=== PATIENT | female | born 2000 | race Caucasian/White ===

== ENCOUNTER 2018-01-03 11:39 | Outpatient (CLI) | payer OTHER | END 2018-01-03 14:30 | disposition home or self-care (01) | LOC: OBT 11:39 → L-D 11:40 → OBT 14:30 | DX: O26.892 Other specified pregnancy related conditions, second trimester (principal); M79.662 Pain in left lower leg; M79.661 Pain in right lower leg; Z3A.21 21 weeks gestation of pregnancy | CPT/HCPCS: 93970 ==

== ENCOUNTER 2018-01-15 16:21 | Inpatient (IN) | payer OTHER ==
[2018-01-15] MEDS: SOD CHLORIDE 0.9% 1,000 ML IV (17:49)
[2018-01-15] MEDS ORDERED: NACL 0.9% 3 ML SYG IV (18:00)
[2018-01-15] MEDS ORDERED: MAGNESIUM HYDROXIDE 30ML CUP PO (18:00)
[2018-01-15] MEDS: ACETAMINOPHEN 325 MG TAB PO (21:53)
[2018-01-15] MEDS: SOD CHLORIDE 0.9% 500 ML IV (23:37)
[2018-01-16] MEDS: SOD CHLORIDE 0.9% 1,000 ML IV ×3 (01:14→13:09)
[2018-01-16 03:58] LABS: LACTIC ACID 0.7 mmol/L (0.5-2.0)
[2018-01-16] MEDS: CEFTRIAXONE 1 GM/50 ML (PMX) 50 ML IVPB (08:40)
[2018-01-16] MEDS: DOCUSATE SODIUM 100 MG CAP PO (09:14)
[2018-01-16] MEDS: ACETAMINOPHEN 325 MG TAB PO ×2 (09:14→22:55)
[2018-01-16 09:16] LABS: ADD MAN DIFF? NO
[2018-01-16 09:24] LABS: BASOPHILS % 0.2 % (0.0-2.0); EOSINOPHILS # 0.1 10^3/ul (0.0-0.5); EOSINOPHILS % 0.9 % (0.0-7.0); HEMATOCRIT 30.4 % (37.0-47.0); HEMOGLOBIN 10.5 g/dl (12.0-16.0); LYMPHOCYTES # 1.4 10^3/ul (0.8-2.9); MEAN CORPUSCULAR HEMOGLOBIN 29.9 pg (29.0-33.0); MEAN CORPUSCULAR HGB CONC 34.5 g/dl (32.0-37.0); MEAN CORPUSCULAR VOLUME 86.6 fl (72.0-104.0); MEAN PLATELET VOLUME 12.5 fl (7.4-10.4); MONOCYTE # 0.9 10^3/ul (0.3-0.9); MONOCYTES % 8.7 % (0.0-13.0); NEUTROPHIL # 8.2 10^3/ul (1.6-7.5); NEUTROPHILS % 76.8 % (30.0-74.0); PLATELET COUNT 170 10^3/UL (140-415); RED BLOOD COUNT 3.51 10^6/ul (4.20-5.40); RED CELL DISTRIBUTION WIDTH 13.2 % (11.5-14.5)
[2018-01-16 09:24] LABS: WHITE BLOOD COUNT 10.6 10^3/ul (4.8-10.8)
[2018-01-16 09:43] LABS: ALANINE AMINOTRANSFERASE 26 IU/L (13-69); ALBUMIN 3.5 g/dl (3.3-4.9); ALBUMIN/GLOBULIN RATIO 1.09; ALKALINE PHOSPHATASE 168 IU/L (42-121); ANION GAP 13 (8-16); ASPARTATE AMINO TRANSFERASE 27 IU/L (15-46); BILIRUBIN,INDIRECT 0.4 mg/dl (0-1.1); BILIRUBIN,TOTAL 0.4 mg/dl (0.2-1.3); BLOOD UREA NITROGEN 2 mg/dl (7-20); CALCIUM 8.8 mg/dl (8.4-10.2); CARBON DIOXIDE 23 mmol/L (21-31); CHLORIDE 109 mmol/L (97-110); GLUCOSE 71 mg/dl (70-220); POTASSIUM 3.8 mmol/L (3.5-5.1); SODIUM 141 mmol/L (135-144); TOTAL PROTEIN 6.7 g/dl (6.1-8.1)
[2018-01-16] MEDS ORDERED: ONDANSETRON 4 MG INJ IV (19:30)
[2018-01-16 19:45] LABS: ADD UMIC NO; UR ASCORBIC ACID NEGATIVE (NEGATIVE); UR BILIRUBIN (Dip) NEGATIVE (NEGATIVE); UR BLOOD (Dip) NEGATIVE (NEGATIVE); UR CLARITY CLEAR (CLEAR); UR COLOR YELLOW (YELLOW); UR GLUCOSE (Dip) 2+ mg/dL (NEGATIVE); UR KETONES (Dip) NEGATIVE (NEGATIVE); UR LEUKOCYTE ESTERASE (Dip) NEGATIVE Leu/ul (NEGATIVE); UR NITRITE (Dip) NEGATIVE (NEGATIVE); UR SPECIFIC GRAVITY (Dip) 1.005 (1.003-1.030); UR TOTAL PROTEIN (Dip) NEGATIVE (NEGATIVE); UR UROBILINOGEN (Dip) 1+ mg/dL (NEGATIVE)
[2018-01-17] MEDS: SOD CHLORIDE 0.9% 1,000 ML IV ×2 (05:53→12:31)
[2018-01-17 07:20] LABS: ADD MAN DIFF? NO
[2018-01-17 07:21] LABS: WHITE BLOOD COUNT 8.2 10^3/ul (4.8-10.8)
[2018-01-17 07:21] LABS: BASOPHILS % 0.2 % (0.0-2.0); EOSINOPHILS # 0.1 10^3/ul (0.0-0.5); EOSINOPHILS % 1.1 % (0.0-7.0); HEMATOCRIT 28.4 % (37.0-47.0); LYMPHOCYTES # 1.6 10^3/ul (0.8-2.9); LYMPHOCYTES % 19.3 % (18.0-55.0); MEAN CORPUSCULAR HEMOGLOBIN 30.6 pg (29.0-33.0); MEAN CORPUSCULAR HGB CONC 35.2 g/dl (32.0-37.0); MEAN CORPUSCULAR VOLUME 86.9 fl (72.0-104.0); MEAN PLATELET VOLUME 12.2 fl (7.4-10.4); MONOCYTE # 0.8 10^3/ul (0.3-0.9); MONOCYTES % 9.2 % (0.0-13.0); NEUTROPHIL # 5.7 10^3/ul (1.6-7.5); NEUTROPHILS % 69.8 % (30.0-74.0); PLATELET COUNT 188 10^3/UL (140-415); RED BLOOD COUNT 3.27 10^6/ul (4.20-5.40); RED CELL DISTRIBUTION WIDTH 12.8 % (11.5-14.5)
[2018-01-17] MEDS: CEFTRIAXONE 1 GM/50 ML (PMX) 50 ML IVPB (08:19)
== END 2018-01-17 22:00 | disposition home or self-care (01) | DRG 781 ==
LOC: TEL 01-16 00:28 → MS1 16:21
PROVIDERS: Internal Medicine Nephrology
DX: O23.02 Infections of kidney in pregnancy, second trimester (principal); E87.1 Hypo-osmolality and hyponatremia; N10 Acute pyelonephritis; Z3A.24 24 weeks gestation of pregnancy; O99.012 Anemia complicating pregnancy, second trimester; R00.0 Tachycardia, unspecified
CPT/HCPCS: 76805; 76817; 80053; 81003; 83605; 85025; 87040; 87086; 93005

== ENCOUNTER 2018-04-28 10:41 | Outpatient (CLI) | payer OTHER ==
[2018-04-28 11:31] LABS: ADD UMIC YES; UR ASCORBIC ACID NEGATIVE (NEGATIVE); UR BILIRUBIN (Dip) NEGATIVE (NEGATIVE); UR BLOOD (Dip) NEGATIVE (NEGATIVE); UR CLARITY SLIGHTLY CLOUDY (CLEAR); UR COLOR YELLOW (YELLOW); UR GLUCOSE (Dip) NEGATIVE (NEGATIVE); UR KETONES (Dip) NEGATIVE (NEGATIVE); UR LEUKOCYTE ESTERASE (Dip) TRACE Leu/ul (NEGATIVE); UR MUCUS FEW /HPF (NONE SEEN); UR NITRITE (Dip) NEGATIVE (NEGATIVE); UR RBC 0 /HPF (0-5); UR SPECIFIC GRAVITY (Dip) 1.015 (1.003-1.030); UR SQUAMOUS EPITHELIAL CELL MODERATE /HPF (FEW); UR TOTAL PROTEIN (Dip) NEGATIVE (NEGATIVE); UR UROBILINOGEN (Dip) NEGATIVE (NEGATIVE); UR WBC 2 /HPF (0-5)
[2018-04-28] MEDS: LACTATED RINGER'S 1,000 ML IV ×2 (11:51→12:58)
[2018-04-28] MEDS: ONDANSETRON 4 MG INJ IV (11:51)
[2018-04-28 12:13] LABS: WHITE BLOOD COUNT 8.5 10^3/ul (4.8-10.8)
[2018-04-28 12:13] LABS: ADD MAN DIFF? NO; BASOPHILS % 0.4 % (0.0-2.0); EOSINOPHILS % 0.4 % (0.0-7.0); HEMOGLOBIN 12.7 g/dl (12.0-16.0); LYMPHOCYTES # 1.1 10^3/ul (0.8-2.9); LYMPHOCYTES % 12.6 % (18.0-55.0); MEAN CORPUSCULAR HEMOGLOBIN 29.7 pg (29.0-33.0); MEAN CORPUSCULAR HGB CONC 34.3 g/dl (32.0-37.0); MEAN CORPUSCULAR VOLUME 86.7 fl (72.0-104.0); MONOCYTE # 0.3 10^3/ul (0.3-0.9); NEUTROPHILS % 82.2 % (30.0-74.0); PLATELET COUNT 180 10^3/UL (140-415); RED BLOOD COUNT 4.27 10^6/ul (4.20-5.40); RED CELL DISTRIBUTION WIDTH 13.2 % (11.5-14.5)
[2018-04-28 12:39] LABS: ALANINE AMINOTRANSFERASE 33 IU/L (13-69); ALBUMIN 3.7 g/dl (3.3-4.9); ALBUMIN/GLOBULIN RATIO 1.05; ALKALINE PHOSPHATASE 270 IU/L (42-121); ANION GAP 15 (8-16); ASPARTATE AMINO TRANSFERASE 32 IU/L (15-46); BILIRUBIN,INDIRECT 0.5 mg/dl (0-1.1); BILIRUBIN,TOTAL 0.5 mg/dl (0.2-1.3); BLOOD UREA NITROGEN 6 mg/dl (7-20); CALCIUM 9.4 mg/dl (8.4-10.2); CARBON DIOXIDE 20 mmol/L (21-31); CHLORIDE 108 mmol/L (97-110); CREATININE 0.42 mg/dl (0.44-1.00); GLUCOSE 94 mg/dl (70-220); POTASSIUM 4.4 mmol/L (3.5-5.1); SODIUM 139 mmol/L (135-144); TOTAL PROTEIN 7.2 g/dl (6.1-8.1)
[2018-04-28] MEDS: ACETAMINOPHEN 1000MG/100ML IV 100 ML IVPB (14:04)
[2018-04-28] MEDS: BUTORPHANOL 2 MG INJ IV (15:34)
== END 2018-04-28 19:12 | disposition home or self-care (01) ==
LOC: OBT 10:41 → L-D 10:41 → OBT 19:12
DX: O21.2 Late vomiting of pregnancy (principal); O26.893 Other specified pregnancy related conditions, third trimester; R10.9 Unspecified abdominal pain; Z3A.38 38 weeks gestation of pregnancy
CPT/HCPCS: 36415; 80053; 81001; 85025; 87086; 96360; 96374; 96375

== ENCOUNTER 2018-05-12 21:15 | Inpatient (IN) | payer OTHER ==
[2018-05-12] MEDS ORDERED: LIDOCAINE 1% (MPF) 30 ML INJ INJ (22:00)
[2018-05-12] MEDS ORDERED: OXYTOCIN 30 UNITS/LR 500 ML IV (22:00)
[2018-05-12] MEDS ORDERED: IBUPROFEN 600 MG TAB PO (22:00)
[2018-05-12] MEDS ORDERED: MISOPROSTOL 200 MCG TAB PR (22:00)
[2018-05-12] MEDS ORDERED: METHYLERGONOVINE 0.2 MG INJ IM (22:00)
[2018-05-12] MEDS ORDERED: BUTORPHANOL 2 MG INJ IV (22:00)
[2018-05-12] MEDS ORDERED: CARBOPROST 250 MCG INJ IM (22:00)
[2018-05-12 22:29] LABS: ADD MAN DIFF? NO
[2018-05-12 22:31] LABS: ABNORMAL IP MESSAGE 1; BASOPHILS % 0.2 % (0.0-2.0); EOSINOPHILS % 0.4 % (0.0-7.0); HEMATOCRIT 36.3 % (37.0-47.0); HEMOGLOBIN 12.8 g/dl (12.0-16.0); LYMPHOCYTES # 1.3 10^3/ul (0.8-2.9); LYMPHOCYTES % 13.8 % (18.0-55.0); MEAN CORPUSCULAR HEMOGLOBIN 30.3 pg (29.0-33.0); MEAN CORPUSCULAR HGB CONC 35.3 g/dl (32.0-37.0); MEAN PLATELET VOLUME 13.2 fl (7.4-10.4); MONOCYTE # 0.5 10^3/ul (0.3-0.9); MONOCYTES % 5.2 % (0.0-13.0); NEUTROPHIL # 7.7 10^3/ul (1.6-7.5); NEUTROPHILS % 80.1 % (30.0-74.0); PLATELET COUNT 174 10^3/UL (140-415); RED BLOOD COUNT 4.22 10^6/ul (4.20-5.40); RED CELL DISTRIBUTION WIDTH 13.1 % (11.5-14.5)
[2018-05-12 22:31] LABS: WHITE BLOOD COUNT 9.6 10^3/ul (4.8-10.8)
[2018-05-12 22:32] LABS: POSITIVE DIFF @See below
[2018-05-12 22:50] LABS: INR 0.86; PROTIME 11.8 Sec (11.9-14.9); PT RATIO 0.9
[2018-05-12 22:51] LABS: PARTIAL THROMBOPLASTIN TIME 28.4 Sec (25.0-35.0)
[2018-05-12] MEDS: LACTATED RINGER'S 1,000 ML IV* (23:08)
[2018-05-12 23:20] LABS: HEPATITIS B SURFACE ANTIGEN NEGATIVE (NEGATIVE)
[2018-05-13 00:55] LABS: ADD UMIC YES; UR ASCORBIC ACID NEGATIVE (NEGATIVE); UR BILIRUBIN (Dip) NEGATIVE (NEGATIVE); UR BLOOD (Dip) NEGATIVE (NEGATIVE); UR CLARITY CLEAR (CLEAR); UR COLOR YELLOW (YELLOW); UR GLUCOSE (Dip) NEGATIVE (NEGATIVE); UR KETONES (Dip) NEGATIVE (NEGATIVE); UR LEUKOCYTE ESTERASE (Dip) NEGATIVE Leu/ul (NEGATIVE); UR MUCUS FEW /HPF (NONE SEEN); UR NITRITE (Dip) NEGATIVE (NEGATIVE); UR RBC 0 /HPF (0-5); UR SQUAMOUS EPITHELIAL CELL FEW /HPF (FEW); UR TOTAL PROTEIN (Dip) 1+ mg/dl (NEGATIVE); UR UROBILINOGEN (Dip) NEGATIVE (NEGATIVE); UR WBC 1 /HPF (0-5)
[2018-05-13] MEDS: LACTATED RINGER'S 1,000 ML IV (02:34)
[2018-05-13] MEDS ORDERED: FENTAnyl 2MCG/ML-ROPIV 0.2% 100 ML (03:12)
[2018-05-13] MEDS ORDERED: NALOXONE (0.4 MG/ML) INJ IV (03:30)
[2018-05-13] MEDS: LACTATED RINGER'S 1,000 ML IV* ×2 (03:30→11:04)
[2018-05-13] MEDS: FENTAnyl 2MCG/ML-ROPIV 0.2% 100 ML BAG EPI ×3 (03:46→20:15)
[2018-05-13] MEDS: OXYTOCIN 30 UNITS/LR 500 ML IV ×3 (16:24→21:18)
[2018-05-13 16:48] LABS: RAPID PLASMA REAGIN NONREACTIVE (NR)
[2018-05-13] MEDS ORDERED: LACTATED RINGER'S 1,000 ML IV* (23:03)
[2018-05-13] MEDS ORDERED: HYDROCODONE/APAP (5/325) TAB PO ×2 (23:30)
[2018-05-13] MEDS ORDERED: METHYLERGONOVINE 0.2 MG INJ IM (23:30)
[2018-05-13] MEDS ORDERED: OXYTOCIN 30 UNITS/LR 500 ML IV (23:30)
[2018-05-13] MEDS ORDERED: DIBUCAINE 1% 30 GM OINT PR (23:30)
[2018-05-13] MEDS ORDERED: ZOLPIDEM 5 MG TAB PO (23:30)
[2018-05-13] MEDS ORDERED: MISOPROSTOL 200 MCG TAB PR (23:30)
[2018-05-13] MEDS ORDERED: CARBOPROST 250 MCG INJ IM (23:30)
[2018-05-13] MEDS: CEPHALEXIN 500 MG CAP PO (23:43)
[2018-05-14] MEDS: WITCH HAZEL/GLYCERIN PAD PR (00:02)
[2018-05-14] MEDS: BENZOCAINE 20% 56 ML SPRAY TOP (00:02)
[2018-05-14] MEDS: LANOLIN 7 GM TUBE TOP (00:03)
[2018-05-14] MEDS: IBUPROFEN 600 MG TAB PO ×5 (00:03→23:51)
[2018-05-14 08:20] LABS: ADD MAN DIFF? NO
[2018-05-14 08:24] LABS: ABNORMAL IP MESSAGE 1; BASOPHILS % 0.2 % (0.0-2.0); EOSINOPHILS # 0.1 10^3/ul (0.0-0.5); HEMATOCRIT 30.7 % (37.0-47.0); HEMOGLOBIN 10.3 g/dl (12.0-16.0); LYMPHOCYTES % 15.8 % (18.0-55.0); MEAN CORPUSCULAR HEMOGLOBIN 29.2 pg (29.0-33.0); MEAN CORPUSCULAR HGB CONC 33.6 g/dl (32.0-37.0); MEAN PLATELET VOLUME 13.5 fl (7.4-10.4); MONOCYTE # 0.9 10^3/ul (0.3-0.9); NEUTROPHIL # 9.4 10^3/ul (1.6-7.5); NEUTROPHILS % 75.8 % (30.0-74.0); PLATELET COUNT 128 10^3/UL (140-415); RED BLOOD COUNT 3.53 10^6/ul (4.20-5.40); RED CELL DISTRIBUTION WIDTH 13.5 % (11.5-14.5)
[2018-05-14 08:24] LABS: WHITE BLOOD COUNT 12.4 10^3/ul (4.8-10.8)
[2018-05-14 08:26] LABS: POSITIVE DIFF @See below
[2018-05-14] MEDS: SENNA/DOCUSATE NA (8.6MG/50MG) TAB PO ×2 (09:30→21:01)
[2018-05-14] MEDS: MAGNESIUM HYDROXIDE 30ML CUP PO ×2 (09:30→21:01)
[2018-05-14] MEDS: MINERAL OIL LIGHT 10 ML VIAL TOP (10:45)
[2018-05-14] MEDS: NITROFURANTOIN (SR) 100 MG CAP PO (21:01)
[2018-05-15] MEDS: IBUPROFEN 600 MG TAB PO ×2 (05:42→13:25)
[2018-05-15] MEDS: DIPHTH/TET/ACEL PERTUSS (ADULT) 0.5 ML VIAL IM* (09:00)
[2018-05-15] MEDS: MEASLES,MUMPS,RUBELLA VACCINE INJ SC* (09:00)
[2018-05-15] MEDS: VARICELLA VACCINE LIVE/PF 1,350 UNIT/0.5 ML ML SC* (09:00)
[2018-05-15] MEDS: NITROFURANTOIN (SR) 100 MG CAP PO (10:55)
[2018-05-15] MEDS: SENNA/DOCUSATE NA (8.6MG/50MG) TAB PO (10:56)
[2018-05-15] MEDS: MAGNESIUM HYDROXIDE 30ML CUP PO (10:56)
== END 2018-05-15 17:10 | disposition home or self-care (01) | DRG 775 ==
LOC: OBT 21:15 → L-D 21:16 → PP1 05-13 22:44 → OBT 22:02 → L-D 22:05
PROC: 10E0XZZ Delivery of Products of Conception, External Approach (ICD-10-PCS; principal; 2018-05-13)
PROC: 0HQ9XZZ Repair Perineum Skin, External Approach (ICD-10-PCS; 2018-05-13)
DX: O48.0 Post-term pregnancy (principal); Z37.0 Single live birth; Z3A.40 40 weeks gestation of pregnancy; O70.0 First degree perineal laceration during delivery; O69.81X0 Labor and delivery complicated by cord around neck, without compression, not applicable or unspecified
CPT/HCPCS: 36415; 62319; 81001; 85025; 85610; 85730; 86592; 86850; 86900; 86901; 87086; 87340